=== PATIENT | male | born 1995 | race African-American/Black ===

== ENCOUNTER 2018-12-20 19:17 | Emergency (ER) | payer OTHER ==
[~2018-12-20] VITALS: Ht 185.4 cm; Wt 90.3 kg
[2018-12-20 19:28] VITALS: Ht 185.4 cm; Wt 90.3 kg
[2018-12-20 20:04] LABS: BASOPHIL % 0.3 % (0-2); PLATELET COUNT 254 x10^3mcL (130-400); RED CELL DISTRIBUTION WIDTH 12.9 % (11.5-14.5)
[2018-12-20 20:06] LABS: CHLORIDE SERUM 106 mmol/L (98-107); CREATININE SERUM 1.3 mg/dL (0.7-1.3); GFR1 > 60 mL/min; GLUCOSE SERUM 89 mg/dL (74-106); SODIUM SERUM 144 mmol/L (136-145)
[2018-12-20 20:10] LABS: ALBUMIN 4.2 g/dL (3.4-5.0); ALKALINE PHOSPHATASE 77 U/L (46-116); ALT/SGPT 11 U/L (16-63); AST/SGOT 20 U/L (15-37); BILIRUBIN TOTAL 1.58 mg/dL (0.20-1.00); LIPASE 56 IU/L (73-393); TOTAL PROTEIN, SERUM 7.8 g/dL (6.4-8.2)
[2018-12-20 21:05] VITALS: BP 113/70
== END 2018-12-20 21:05 | disposition home or self-care (01) ==
LOC: ED 19:17
PROVIDERS: Emergency Medicine
DX: R10.11 Right upper quadrant pain (principal); R51 Headache; J45.909 Unspecified asthma, uncomplicated
CPT/HCPCS: 36415

== ENCOUNTER 2019-03-20 20:21 | Emergency (ER) | payer OTHER ==
[~2019-03-20] VITALS: Ht 185.4 cm; Wt 86.2 kg
[2019-03-20 20:35] VITALS: Ht 185.4 cm; Wt 86.2 kg
[2019-03-20 21:55] LABS: CALCIUM 8.6 mg/dL (8.5-10.1); CARBON DIOXIDE 33.5 mmol/L (21-32); CHLORIDE SERUM 105 mmol/L (98-107); GFR1 > 60 mL/min; GLUCOSE SERUM 85 mg/dL (74-106); POTASSIUM SERUM 3.3 mmol/L (3.5-5.1); SODIUM SERUM 141 mmol/L (136-145)
[2019-03-20 22:32] VITALS: BP 124/70
== END 2019-03-20 22:32 | disposition home or self-care (01) ==
LOC: ED 20:21
PROVIDERS: Emergency Medicine
DX: G40.909 Epilepsy, unspecified, not intractable, without status epilepticus (principal)

== ENCOUNTER 2019-03-21 17:37 | Emergency (ER) | payer OTHER ==
[~2019-03-21] VITALS: Ht 185.4 cm; Wt 86.2 kg
[2019-03-21 17:44] VITALS: Ht 185.4 cm; Wt 86.2 kg
[2019-03-21 18:22] LABS: CALCIUM 8.9 mg/dL (8.5-10.1); CARBON DIOXIDE 32.2 mmol/L (21-32); CHLORIDE SERUM 106 mmol/L (98-107); GFR1 > 60 mL/min; GLUCOSE SERUM 75 mg/dL (74-106); POTASSIUM SERUM 4.5 mmol/L (3.5-5.1); SODIUM SERUM 142 mmol/L (136-145)
[2019-03-21 18:26] LABS: ALBUMIN 3.8 g/dL (3.4-5.0); ALKALINE PHOSPHATASE 91 U/L (46-116); ALT/SGPT 22 U/L (16-63); AST/SGOT 18 U/L (15-37); BILIRUBIN TOTAL 0.7 mg/dL (0.20-1.00); TOTAL PROTEIN, SERUM 7.5 g/dL (6.4-8.2)
[2019-03-21 19:06] VITALS: BP 121/72
== END 2019-03-21 19:01 | disposition home or self-care (01) ==
LOC: ED 17:37
PROVIDERS: Emergency Medicine
DX: F44.5 Conversion disorder with seizures or convulsions (principal)

== ENCOUNTER 2019-04-15 20:27 | Emergency (ER) | payer OTHER ==
[~2019-04-15] VITALS: Ht 185.4 cm; Wt 89.4 kg
[2019-04-15 20:48] VITALS: Ht 185.4 cm; Wt 89.4 kg
[2019-04-15 21:34] LABS: BASOPHIL % 0.4 % (0-2); PLATELET COUNT 220 x10^3mcL (130-400); RED CELL DISTRIBUTION WIDTH 12.6 % (11.5-14.5)
[2019-04-15 21:42] LABS: CALCIUM 7.9 mg/dL (8.5-10.1); CARBON DIOXIDE 28.3 mmol/L (21-32); CHLORIDE SERUM 103 mmol/L (98-107); CREATININE SERUM 0.9 mg/dL (0.7-1.3); GFR1 > 60 mL/min; GLUCOSE SERUM 94 mg/dL (74-106); POTASSIUM SERUM 3.3 mmol/L (3.5-5.1); SODIUM SERUM 137 mmol/L (136-145)
[2019-04-15 21:46] LABS: ALBUMIN 3.6 g/dL (3.4-5.0); ALKALINE PHOSPHATASE 78 U/L (46-116); ALT/SGPT 84 U/L (16-63); AST/SGOT 346 U/L (15-37); BILIRUBIN TOTAL 0.4 mg/dL (0.20-1.00); TOTAL PROTEIN, SERUM 7.4 g/dL (6.4-8.2)
[2019-04-15 22:45] VITALS: BP 122/75
== END 2019-04-15 22:45 | disposition home or self-care (01) ==
LOC: ED 20:27
PROVIDERS: Emergency Medicine
DX: G40.909 Epilepsy, unspecified, not intractable, without status epilepticus (principal); J45.909 Unspecified asthma, uncomplicated
CPT/HCPCS: 36415

== ENCOUNTER 2019-05-04 22:30 | Emergency (ER) | payer OTHER ==
[~2019-05-04] VITALS: Ht 172.7 cm; Wt 71.2 kg
[2019-05-04 22:43] VITALS: BP 128/67
== END 2019-05-04 22:51 | disposition left against medical advice (07) ==
LOC: ED 22:30
DX: R56.9 Unspecified convulsions (principal)

== ENCOUNTER 2019-05-18 17:56 | Emergency (ER) | payer OTHER ==
[2019-05-18 18:49] LABS: BASOPHIL % 0.6 % (0-2); PLATELET COUNT 258 x10^3mcL (130-400); RED CELL DISTRIBUTION WIDTH 12.4 % (11.5-14.5)
[2019-05-18 18:51] LABS: CALCIUM 8.6 mg/dL (8.5-10.1); CARBON DIOXIDE 27.2 mmol/L (21-32); CHLORIDE SERUM 103 mmol/L (98-107); CREATININE SERUM 1.1 mg/dL (0.7-1.3); GFR1 > 60 mL/min; GLUCOSE SERUM 93 mg/dL (74-106); POTASSIUM SERUM 4.3 mmol/L (3.5-5.1); SODIUM SERUM 138 mmol/L (136-145)
[2019-05-18 18:55] LABS: ALBUMIN 4.1 g/dL (3.4-5.0); ALKALINE PHOSPHATASE 115 U/L (46-116); ALT/SGPT 35 U/L (16-63); AST/SGOT 31 U/L (15-37); BILIRUBIN TOTAL 0.2 mg/dL (0.20-1.00); TOTAL PROTEIN, SERUM 8.1 g/dL (6.4-8.2)
[2019-05-18 20:36] VITALS: BP 129/54
== END 2019-05-18 20:36 | disposition home or self-care (01) ==
LOC: ED 17:56
PROVIDERS: Emergency Medicine
DX: G40.909 Epilepsy, unspecified, not intractable, without status epilepticus (principal); J45.909 Unspecified asthma, uncomplicated
CPT/HCPCS: J1165

== ENCOUNTER 2019-08-19 12:31 | Emergency (ER) | payer OTHER ==
[~2019-08-19] VITALS: Ht 185.4 cm; Wt 61.2 kg
[2019-08-19 12:35] VITALS: Ht 185.4 cm; Wt 61.2 kg
[2019-08-19 13:46] LABS: BASOPHIL % 0.6 % (0-2); PLATELET COUNT 265 x10^3mcL (130-400); RED CELL DISTRIBUTION WIDTH 12.6 % (11.5-14.5)
[2019-08-19 13:54] LABS: CALCIUM 8.2 mg/dL (8.5-10.1); CARBON DIOXIDE 27.7 mmol/L (21-32); CHLORIDE SERUM 104 mmol/L (98-107); CREATININE SERUM 1.1 mg/dL (0.7-1.3); GFR1 > 60 mL/min; GLUCOSE SERUM 93 mg/dL (74-106); POTASSIUM SERUM 3.7 mmol/L (3.5-5.1); SODIUM SERUM 142 mmol/L (136-145)
[2019-08-19 13:59] LABS: ALBUMIN 3.8 g/dL (3.4-5.0); ALKALINE PHOSPHATASE 73 U/L (46-116); ALT/SGPT 17 U/L (16-63); AST/SGOT 20 U/L (15-37); BILIRUBIN TOTAL 0.9 mg/dL (0.20-1.00); TOTAL PROTEIN, SERUM 7.3 g/dL (6.4-8.2)
[2019-08-19 14:32] VITALS: BP 130/71
== END 2019-08-19 14:32 | disposition home or self-care (01) ==
LOC: ED 12:31
PROVIDERS: Emergency Medicine
DX: G40.909 Epilepsy, unspecified, not intractable, without status epilepticus (principal); J45.909 Unspecified asthma, uncomplicated

== ENCOUNTER 2019-08-29 15:15 | Emergency (ER) | payer OTHER ==
[~2019-08-29] VITALS: Ht 185.4 cm; Wt 83.0 kg
[2019-08-29 15:22] VITALS: Ht 185.4 cm; Wt 83.0 kg
[2019-08-29 16:21] LABS: BASOPHIL % 0.8 % (0-2); PLATELET COUNT 233 x10^3mcL (130-400); RED CELL DISTRIBUTION WIDTH 12.9 % (11.5-14.5)
[2019-08-29 16:37] LABS: ALBUMIN 3.9 g/dL (3.4-5.0); ALKALINE PHOSPHATASE 78 U/L (46-116); ALT/SGPT 18 U/L (16-63); AST/SGOT 18 U/L (15-37); CALCIUM 8.4 mg/dL (8.5-10.1); CARBON DIOXIDE 28.4 mmol/L (21-32); CHLORIDE SERUM 103 mmol/L (98-107); CREATININE SERUM 0.9 mg/dL (0.7-1.3); GFR1 > 60 mL/min; GLUCOSE SERUM 87 mg/dL (74-106); POTASSIUM SERUM 3.7 mmol/L (3.5-5.1); SODIUM SERUM 140 mmol/L (136-145); TOTAL PROTEIN, SERUM 7.2 g/dL (6.4-8.2)
[2019-08-29 17:53] VITALS: BP 130/81
== END 2019-08-29 17:53 | disposition home or self-care (01) ==
LOC: ED 15:15
PROVIDERS: Emergency Medicine
DX: R07.89 Other chest pain (principal); G40.909 Epilepsy, unspecified, not intractable, without status epilepticus; J45.909 Unspecified asthma, uncomplicated
CPT/HCPCS: 36415; Q0092

== ENCOUNTER 2019-11-04 20:25 | Emergency (ER) | payer OTHER ==
[~2019-11-04] VITALS: Ht 185.4 cm; Wt 83.9 kg
[2019-11-04 20:46] VITALS: Ht 185.4 cm; Wt 83.9 kg
[2019-11-04 21:07] LABS: BASOPHIL % 0.4 % (0-2); PLATELET COUNT 219 x10^3mcL (130-400); RED CELL DISTRIBUTION WIDTH 12.3 % (11.5-14.5)
[2019-11-04 21:25] LABS: CALCIUM 9.3 mg/dL (8.5-10.1); CARBON DIOXIDE 28.2 mmol/L (21-32); CHLORIDE SERUM 104 mmol/L (98-107); CREATININE SERUM 1.3 mg/dL (0.7-1.3); GFR1 > 60 mL/min; GLUCOSE SERUM 94 mg/dL (74-106); POTASSIUM SERUM 3.5 mmol/L (3.5-5.1); SODIUM SERUM 141 mmol/L (136-145)
[2019-11-04 21:31] LABS: ALBUMIN 4.2 g/dL (3.4-5.0); ALKALINE PHOSPHATASE 87 U/L (46-116); ALT/SGPT 24 U/L (16-63); AST/SGOT 28 U/L (15-37); BILIRUBIN TOTAL 1.14 mg/dL (0.20-1.00); MAGNESIUM 2.1 mg/dL (1.8-2.4)
[2019-11-05 00:09] VITALS: BP 122/68
== END 2019-11-05 00:01 | disposition home or self-care (01) ==
LOC: ED 20:25
PROVIDERS: Emergency Medicine
DX: S06.0X0A Concussion without loss of consciousness, initial encounter (principal); R56.9 Unspecified convulsions; J45.909 Unspecified asthma, uncomplicated; W18.39XA Other fall on same level, initial encounter; Y93.75 Activity, martial arts; Y92.89 Other specified places as the place of occurrence of the external cause; Y99.8 Other external cause status
CPT/HCPCS: J1953; J2060

== ENCOUNTER 2019-11-25 20:48 | Emergency (ER) | payer OTHER ==
[~2019-11-25] VITALS: Ht 182.9 cm; Wt 81.6 kg
[2019-11-25 20:57] VITALS: Ht 182.9 cm; Wt 81.6 kg
[2019-11-25 22:47] LABS: CALCIUM 8.9 mg/dL (8.5-10.1); CARBON DIOXIDE 31.9 mmol/L (21-32); CHLORIDE SERUM 103 mmol/L (98-107); CREATININE SERUM 1.3 mg/dL (0.7-1.3); GFR1 > 60 mL/min; GLUCOSE SERUM 86 mg/dL (74-106); POTASSIUM SERUM 3.3 mmol/L (3.5-5.1); SODIUM SERUM 139 mmol/L (136-145)
[2019-11-25 22:52] LABS: ALBUMIN 3.8 g/dL (3.4-5.0); ALKALINE PHOSPHATASE 92 U/L (46-116); ALT/SGPT 25 U/L (16-63); AST/SGOT 22 U/L (15-37); BILIRUBIN TOTAL 0.3 mg/dL (0.20-1.00); TOTAL PROTEIN, SERUM 7.5 g/dL (6.4-8.2)
[2019-11-25 23:53] VITALS: BP 121/68
== END 2019-11-25 23:53 | disposition home or self-care (01) ==
LOC: ED 20:48
PROVIDERS: Emergency Medicine
DX: G40.909 Epilepsy, unspecified, not intractable, without status epilepticus (principal); R89.2 Abnormal level of other drugs, medicaments and biological substances in specimens from other organs, systems and tissues; J45.909 Unspecified asthma, uncomplicated; Z76.0 Encounter for issue of repeat prescription
CPT/HCPCS: 82962

== ENCOUNTER 2020-01-23 02:29 | Emergency (ER) | payer OTHER ==
[~2020-01-23] VITALS: Ht 182.9 cm; Wt 81.6 kg
[2020-01-23 02:38] VITALS: Ht 182.9 cm; Wt 81.6 kg
[2020-01-23 05:00] VITALS: BP 126/75
== END 2020-01-23 05:00 | disposition home or self-care (01) ==
LOC: ED 02:29
DX: G40.909 Epilepsy, unspecified, not intractable, without status epilepticus (principal); J45.909 Unspecified asthma, uncomplicated
CPT/HCPCS: J1165; J2060

== ENCOUNTER 2020-01-25 14:21 | Emergency (ER) | payer OTHER ==
[~2020-01-25] VITALS: Ht 185.4 cm; Wt 83.9 kg
[2020-01-25 14:25] VITALS: Ht 185.4 cm; Wt 83.9 kg
[2020-01-25 15:00] LABS: BASOPHIL % 0.5 % (0-2); PLATELET COUNT 221 x10^3mcL (130-400); RED CELL DISTRIBUTION WIDTH 12.6 % (11.5-14.5)
[2020-01-25 15:07] LABS: CALCIUM 8.5 mg/dL (8.5-10.1); CARBON DIOXIDE 31.2 mmol/L (21-32); CHLORIDE SERUM 104 mmol/L (98-107); CREATININE SERUM 1.1 mg/dL (0.7-1.3); GFR1 > 60 mL/min; GLUCOSE SERUM 88 mg/dL (74-106); POTASSIUM SERUM 4.1 mmol/L (3.5-5.1); SODIUM SERUM 141 mmol/L (136-145)
[2020-01-25 15:12] LABS: ALKALINE PHOSPHATASE 75 U/L (46-116); ALT/SGPT 16 U/L (16-63); AST/SGOT 20 U/L (15-37); BILIRUBIN TOTAL 0.6 mg/dL (0.20-1.00); TOTAL PROTEIN, SERUM 7.6 g/dL (6.4-8.2)
[2020-01-25 15:24] VITALS: BP 113/77
== END 2020-01-25 15:23 | disposition left against medical advice (07) ==
LOC: ED 14:21
PROVIDERS: Specialist
DX: R07.89 Other chest pain (principal); J45.909 Unspecified asthma, uncomplicated
CPT/HCPCS: 83880

== ENCOUNTER 2020-02-12 17:47 | Observation (INO) | payer OTHER ==
[~2020-02-12] VITALS: Ht 188 cm; Wt 91.0 kg
--- NOTE | 2020-02-12 18:00 | NUR ---
PATIENT PLACED ON 5150 HOLD BY OFFICER CHARLY. ORIGINAL COPY PLACED IN CHART.
--- NOTE | 2020-02-12 18:15 | NUR ---
PATIENT ARRIVED FROM [facility], C/O SI BY TAKING 9 WELLBUTRIN MEDICATION, UNKNOWN TIME OR DOSE. PATIENT VOLUNTARILY WALKED INTO [facility] TODAY FOR ATTEMPT SI BY OVER DOSE. PATIENT C/O DIZZINESS AND NAUSEA AT THIS TIME. PATIENT AAOX4, NAD AT THIS TIME. PATIENT GOWNED, SAFETY PRECAUTIONS IN PLACE, SEIZURE PRECAUTIONS IN PLACE, MSE DONE BY DR. OTT, PATIENT IN VIEW OF NURSE STATION. PATIENT BELONGING PLACED IN RADION ROOM. HX OF SEIZURES PATIENT NPO. .
[2020-02-12 18:16] VITALS: Ht 188 cm; Wt 91.0 kg
--- NOTE | 2020-02-12 18:16 | NUR ---
SARA FROM POISON CONTROL RECOMMENDS 24 HRS MONITOR FOR LATE ONSET SEIZURE. LABS: CMP, MG, ASA, ACETAMINOPHEN, ALCOHOL LEVELS. UPDATE VITALS SIGNS WITH TEMPERATURE. TREATMENT: REPEAT EKG IN 3 HRS, MONITOR FOR QT PROLONGATION -NPO, ZOFRAN, PROTONIX, 50MG PO CHARCOAL.
--- NOTE | 2020-02-12 18:28 | NUR ---
PROVIDED PATIENT URINAL. PATIENT STATES HE'S UNABLE TO PROVIDE ANY URINE AT THIS TIME. PATIENT IN VIEW OF NURSE STATION
[2020-02-12 18:29] LABS: BASOPHIL % 0.2 % (0-2); PLATELET COUNT 262 x10^3mcL (130-400); RED CELL DISTRIBUTION WIDTH 12.2 % (11.5-14.5)
[2020-02-12 18:35] LABS: CALCIUM 8.9 mg/dL (8.5-10.1); CARBON DIOXIDE 27.6 mmol/L (21-32); CHLORIDE SERUM 102 mmol/L (98-107); CREATININE SERUM 1.2 mg/dL (0.7-1.3); GFR1 > 60 mL/min; GLUCOSE SERUM 98 mg/dL (74-106); POTASSIUM SERUM 3.6 mmol/L (3.5-5.1); SODIUM SERUM 140 mmol/L (136-145)
[2020-02-12 18:39] LABS: ALBUMIN 4.2 g/dL (3.4-5.0); ALKALINE PHOSPHATASE 75 U/L (46-116); ALT/SGPT 29 U/L (16-63); AST/SGOT 21 U/L (15-37); BILIRUBIN TOTAL 0.85 mg/dL (0.20-1.00)
[2020-02-12 18:40] LABS: TOTAL PROTEIN, SERUM 8.4 g/dL (6.4-8.2)
--- NOTE | 2020-02-12 18:41 | NUR ---
PATIENT BELONGING IN RADIO ROOM
[2020-02-12 19:05] LABS: microscopic required? NO
--- NOTE | 2020-02-12 19:10 | NUR ---
REPORT GIVEN TO QUINN SMITH TO ASSUME PATIENT CARE
[2020-02-12 19:19] LABS: UA SPECIFIC GRAVITY 1.025 (1.005-1.035); urine erythrocyte NEGATIVE (NEGATIVE)
--- NOTE | 2020-02-12 19:34 | NUR ---
RECEIVED PT FROM GABRIELA SMITH, PT IN ED FOR SI AND OD ON WELLBUTRIN. PT AAO X4, SPEECH CLEAR AND APPROPRIATE, VSS, PERSUDHAKAR, PT STATES HE NO LONGER WISHES TO HARM HIMSELF, I INFORMED PT HE IS STILL ON A 5150 HOLD AND WILL BE KEPT FOR OBSERVAION. UPDATED PT ON POC, PT VERBALIZED UNDERSTANDING, IV 29 G IN LAC, FLUSHES FREELY WITH 10 CC NS. PT IN VIEW OF NURSES STATION, WILL CLOSELY MONITOR FOR ANY CHANGES, SEIZURE PRECAUTIONS IN PLACE
--- NOTE | 2020-02-12 20:49 | NUR ---
PT LAYING IN ED GURNEY, DENIES ANY PAIN AND APPEARS COMFORTABLE, NO S/S OF AGITATION OR HALLLUCINATIONS, DENIES SI AT THIS TIME. VSS, PT IS A TELE HOLD, AWAITING BED PLACEMENT. ELODIA LIGHT WITHIN REACH, WILL MONITOR
--- NOTE | 2020-02-12 21:34 | NUR ---
ARANZA FROM POISON CONTROL CALLED BACK FOR UPDATE ON LABS AND VITAL SIGNS. PER SABRA BECAUSE WELBUTRIN CAN PROLONG THE QTC IT IS IMPORTANT TO OPTIMIZE ELECTROLYTES, AND KEEP POTASSIUM ABOVE 4, CALCIUM ABOVE 9, AND MAG ABOVE 2. PRIMARY RN QUINN MADE AWARE.
--- NOTE | 2020-02-12 21:44 | NUR ---
MD HILARIO CALLED AND MADE AWARE OF POISON CONTROLS RECOMMENDATIONS.
--- NOTE | 2020-02-12 22:36 | NUR ---
PT IN ED FROYLAN, IN AND OUT OF SLEEP, PT STATES HE IS COMFORTABLE AT THIS TIME, DENIES PAIN, SOB, DIZZINESS, CONNECTED TO FULL CM, NSR. VSS. CALL LIGHT WITHIN REACH WILL MONITOR
--- NOTE | 2020-02-12 23:15 | NUR ---
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 SANTA VERBALIZED UNDERSTANDING. NUMBER TO CALL SANTA IS [phone]
--- NOTE | 2020-02-12 23:28 | NUR ---
PT SLEEPING, ALL VITAL SIGNS ARE STABLE FLUID HYDRATION STARTED AT 80ML/HR. PT DENIES CHEST PAIN, SOB, N/V/D. PT STATES HE IS DIZZY WITH MOVEMENT. WILL MONITOR
--- NOTE | 2020-02-13 00:40 | NUR ---
ALL VITAL SIGNS CURRENTLY STABLE, PT IS SLEEPING, EASILY WAKENED, AAO X4, SPEECH IS CLEAR AND APPROPRIATE, DENIES N/V/D, CHEST PAIN, SOB AND DIZZINESS. NO ACUTE DISTRESS NOTED, IV HYDRATION CONTINUES TO INFUSE AT 80 ML HR. ALL NEEDS CURRENTLY MET. PT CONNECTED TO FULL CM, NSR. WILL MONITOR
--- NOTE | 2020-02-13 01:14 | NUR ---
ASSUMED CARE OF PT FROM LUIS BALL.
--- NOTE | 2020-02-13 01:17 | NUR ---
PT A&O X4, RESP E/U, EQUAL RISE AND FALL OF THE CHEST, AND NO DISTRESS. WILL CONTINUE TO MONITOR THE PT.
--- NOTE | 2020-02-13 02:10 | NUR ---
PT A&O X4, RESP E/U, EQUAL RISE AND FALL OF THE CHEST, AND NO DISTRESS NOTED. WILL CONTINUE TO MONITOR.
--- NOTE | 2020-02-13 02:10 | NUR ---
PROVIDED PT WITH SANDWICH AND TWO CUPS OF WATER.
--- NOTE | 2020-02-13 03:27 | NUR ---
PT SLEEPING IN GURNEY CALMLY, RESP E/U, EQUAL RISE AND FALL OF THE CHEST, AND NO DISTRESS NOTED. WILL CONTINUE TO MONITOR.
--- NOTE | 2020-02-13 04:23 | NUR ---
PT SLEEPING CALMLY IN GURNEY, RESP E/U, EQUAL RISE AND FALL OF THE CHEST, AND NO DISTRESS NOTED. WILL CONTINUE TO MONITOR THE PT.
--- NOTE | 2020-02-13 05:16 | NUR ---
PT A&O X4, RESP E/U, EQUAL CHEST RISE, AND NO DISTRESS NOTED. WILL CONTINUE TO MONITOR.
--- NOTE | 2020-02-13 06:14 | NUR ---
PT A&O X4, RESP E/U, EQUAL RISE AND FALL OF THE CHEST, AND NO DISTRESS NOTED. WILL CONTINUE TO MONITOR THE PT.
[2020-02-13 06:26] LABS: BASOPHIL % 0.2 % (0-2); PLATELET COUNT 280 x10^3mcL (130-400); RED CELL DISTRIBUTION WIDTH 12.5 % (11.5-14.5)
[2020-02-13 06:50] LABS: ALBUMIN 3.9 g/dL (3.4-5.0); ALKALINE PHOSPHATASE 64 U/L (46-116); ALT/SGPT 21 U/L (16-63); AST/SGOT 20 U/L (15-37); CALCIUM 8.5 mg/dL (8.5-10.1); CARBON DIOXIDE 25.5 mmol/L (21-32); CHLORIDE SERUM 102 mmol/L (98-107); GFR1 > 60 mL/min; GLUCOSE SERUM 104 mg/dL (74-106); MAGNESIUM 1.8 mg/dL (1.8-2.4); PHOSPHOROUS 3.7 mg/dL (2.5-4.9); POTASSIUM SERUM 3.5 mmol/L (3.5-5.1); SODIUM SERUM 138 mmol/L (136-145); TOTAL PROTEIN, SERUM 7.6 g/dL (6.4-8.2)
--- NOTE | 2020-02-13 07:07 | NUR ---
SPOKE TO PHARMACY REGARDING THE TWO ORDERS FOR POTASSIUM ORDERS, TABLETS AND IV. PHARMACY INFORMED ME TO ONLY GIVE THE TABLETS. IV ORDER SET TO GIVE IV POTASSIUM IF LESS THAN 4 AND TABLETS IF POTASSIUM IS 3.1 TO 3.5.
--- NOTE | 2020-02-13 07:45 | NUR ---
PT RECD RESTING WELL, NO COMBATIVE BEHAVIOR, NO C/O AURA OR ANY SE ACTIVITY NOTED; PT TO REMAIN FOR OBSERVATION DUE HIS INGESTION; CONT TO MONTIOR
--- NOTE | 2020-02-13 08:12 | NUR ---
ROSY JEAN POISON CONTROL: [phone], STS THAT A F/U EKG SHOULD BE DONE FOR FURTHER F/U OF WELLBUTRIN SIDE EFFECTS; PT REMAINS AWAKE/ALERT, NO DISTRESS, REMAINS CALM/COOPERATIVE, UPDATED PROVIDER
--- NOTE | 2020-02-13 09:40 | NUR ---
PT WILL GO TO ICU FOR FURTHER MONITORING; PT REMAINS W/O SEIZURE ACTIVITY, CP/SOB/DIZZINESS; REMAINS CALM/COOPERATIVE; ARRON 100% OF AM MEAL
--- NOTE | 2020-02-13 11:15 | NUR ---
PT RESTING WELL, NO OUTBURSTS, ASKS TO USE BR; RTNS TO BEDSIDE IMMEDIATELY; REMIANS CALM/COOPERATIVE, NO SEIZURE ACTIVITY OR CHEST PAIN NOTED
--- NOTE | 2020-02-13 13:28 | NUR ---
REPORT GIVEN TO LAUREN SMITH; PT ATE 100% OF AFTERNOON MEAL; ARRON WELL; NO SEIZURE ACTIVITY SEEN, NO OUTBURSTS, NO COMBATIVE BEHAVIOR, NEEDING RE-EVAL FOR [facility]URN TO [facility]
[2020-02-13 14:08] VITALS: BP 126/54
--- NOTE | 2020-02-13 14:57 | NUR ---
1420 SPOKE TO PATIENT AND HE STATED HE FEELS GOOD, ASKED IF HE FELT LIKE TRYING TO KILL HIMSELF NOW AND HE STATED THE "MEDS SEEMED TO MAKE ME FEEL PSYCHOTIC. I HADNT FELT LIKE THAT BEFORE" HE SAYS. HE ALSO SAYS HE FEELS VERY MUCH BETTER NOW AND HE THINKS THE "CRUEL" PEOPLE OF HIS PAST BROUGHT HIM DOWN. HE SAYS HE WILL TRY TO SEPARATE HIMSELF FROM THEM.
--- NOTE | 2020-02-13 15:47 | NUR ---
SHEMAR FROM POISON CONTROL GIVEN UPDATE/MW
--- NOTE | 2020-02-13 16:42 | NUR ---
1640 PT REMAINS IN GOOD SPIRITS AND ZERO DISTRESS//MW
--- NOTE | 2020-02-13 18:40 | NUR ---
1820 psychiatric MD spoke to patient and advised he is on 5150 hold til tomorrow when pt will be ok to move to other facility/MD left before i could speak to him and no notes yet//mw
[2020-02-13 19:40] VITALS: BP 159/95
[2020-02-14 00:14] VITALS: BP 135/69
[2020-02-14 04:00] VITALS: BP 127/76
--- NOTE | 2020-02-14 04:51 | NUR ---
PLEBOTOMIST BRITT AT BEDSIDE STATES SHE IS UNABLE TO COMPLETE LAB DRAW. STATES SHE WILL SEND ANOTHER PLEBOTOMIST TO TRY THIS MORNING.
[2020-02-14 05:50] LABS: BASOPHIL % 0.4 % (0-2); PLATELET COUNT 276 x10^3mcL (130-400); RED CELL DISTRIBUTION WIDTH 12.4 % (11.5-14.5)
[2020-02-14 06:51] LABS: ALKALINE PHOSPHATASE 68 U/L (46-116); ALT/SGPT 22 U/L (16-63); AST/SGOT 12 U/L (15-37); BILIRUBIN TOTAL 1.07 mg/dL (0.20-1.00); CARBON DIOXIDE 25.5 mmol/L (21-32); CHLORIDE SERUM 105 mmol/L (98-107); CREATININE SERUM 1.2 mg/dL (0.7-1.3); GFR1 > 60 mL/min; GLUCOSE SERUM 95 mg/dL (74-106); PHOSPHOROUS 4.3 mg/dL (2.5-4.9); SODIUM SERUM 140 mmol/L (136-145)
[2020-02-14 07:07] LABS: TOTAL PROTEIN, SERUM 8.3 g/dL (6.4-8.2)
[2020-02-14 07:30] VITALS: BP 135/69
--- NOTE | 2020-02-14 10:07 | NUR ---
PT HAS NO THROUGHTS OF HARMING SELF, WANTS TO GO HOME, NO PLANS TO HARM SELF ONCE PT GOES HOME, WILL CONTINUE TO MONITOR
--- NOTE | 2020-02-14 10:54 | NUR ---
REPORT GIVEN TO SOURAV SMITH, ALL QUESTIONS & CONCERNS ANSWERED
--- NOTE | 2020-02-14 11:29 | NUR ---
REC'VD PT FROM LUIS LAI. PT ARRIVED TO UNIT VIA WHEELCHAIR ACCOMPANIED BY RN. AAOX4, APPROPRIATE CONVERSATION NOTED. RES E/U, DENIES SOB ON RA. TELE MONITOR 29, SHOWING SR. DENIES CP/PRESSURE. ABDOMEN SOFT, ACTIVE BOWEL SOUNDS X4. NO GI/ COMPLAINT. VOIDS IN URINAL WITHOUT DIFFICULTY. SKIN WARM, DRY, AND INTACT. AMBULATORY AT BASELINE. IV SITE TO ROYCE FARRIS.
--- NOTE | 2020-02-14 15:27 | NUR ---
IV TO RAC FLUSHED AND INFILTRATED. REMOVED IV AND CATHETER INTACT. INSTERTED A 22 G IV TO RFA, FLUSHED AND PATENT. PT TOLERATED WELL. IVF RESUMED
--- NOTE | 2020-02-14 18:44 | NUR ---
PT LAYING IN BED. NO SIGNIFICANT CHANGES NOTED. NO ACUTE DISTRESS NOTED. IV SITE TO LFA CDI AND PATENT. IVF INFUSING WELL. DENIES PAIN/DISCOMFORT. SITTER AT BEDSIDE
--- NOTE | 2020-02-14 19:30 | NUR ---
PT RECIEVED FROM DAY NURSE. PT RESTING AT SIDE OF BED AT THIS TIME. SITTER AT BEDSIDE. PT DENIES PAIN OR DISCOMFORT. PT BREATHING E/U ON RA. PT INSISTING ON LEAVING AT THIS TIME. PT ADVISED THAT HE IN ON A 5150 HOLD REQUIRED TO BE HERE AT THIS TIME. TOLD PT MARGIE BASHIR WILL BE CONTACTED IF HE ATTEMPTS TO LEAVE.
--- NOTE | 2020-02-14 19:45 | NUR ---
PT REQUESTING FOR HIS IV TO BE REMOVED. PT STATING HE WANTS TO LEAVE. CHARGE NURSE MADE AWARE. CHARGE NURSE TO SPEAK TO PT.
--- NOTE | 2020-02-14 19:54 | NUR ---
DR HULL PER PHONE. CALLED BECAUSE PATIENT INSISTING TO LEAVE THE HOSPITAL. PATIENT WAS ALREADY INFORMED THAT IF HE LEAVES THE HOSPITAL WE WILL BE CALLING THE [place] [employer]. PER DOCTOR KURTIS, PATIENT IS SUICIDAL AND CAME FROM [facility]. HE IS NOT SAFE TO LEAVE. DR HULL AGREED THAT WE NEED TO FOLLOW THE PROTOCOL OF CALLING THE POLICE. CALL HAD BEEN PLACED FOR ATTENDING PHYSICIAN. DR NICHOLSED DELIVERY CLERK BUT HAS NOT YET CALLED BACK. NURSING TRACTOR OPERATOR BATTERY INFORMED.
[2020-02-14 19:57] VITALS: BP 103/65
--- NOTE | 2020-02-14 20:00 | NUR ---
[place] PD CALLED AT THIS TIME. INFORMED DISPATCHER VANESA OF PTS DECISION TO LEAVE. PER PD, OFFICER WILL MEET US AT [facility]. PT ACCOMPANIED DOWN TO [facility], OFFICER SPOKE TO PT. PER OFFICER, IF PT WAS TO LEAVE HE IS REQUIRED TO TAKE PT BACK TO ER. PT DECIEDED TO STAY AT THIS TIME. PT ACCOMPANIED BACK TO PT ROOM. WILL CONTINUE TO MONITOR.
--- NOTE | 2020-02-14 20:30 | NUR ---
PT REFUSING TELE AND IV AT THIS TIME. MADE AWARE.
[2020-02-15 06:38] VITALS: BP 134/82
--- NOTE | 2020-02-15 06:46 | NUR ---
PT RESTING IN BED AT THIS TIME. DENIES PAIN OR DISCOMOFORT. SITTER AT BEDSIDE. ALL NEEDS AND CONCERNS ADDRESSED. WILL ENDORSE TO DAY NURSE.
--- NOTE | 2020-02-15 07:05 | NUR ---
RCV'D PT FROM NIGHT RN. PT SITTING ON CHAIR, AAOX4. NO ACUTE DISTRESS NOTED. DENIES PAIN/DISCOMFORT. NO IV ACCESS, PT REFUSED. NO TELE MONITOR, PT REFUSED. SITTER AT BEDSIDE.
[2020-02-15 09:27] VITALS: BP 131/76
[2020-02-15 09:39] LABS: ALBUMIN 4.3 g/dL (3.4-5.0); ALKALINE PHOSPHATASE 70 U/L (46-116); ALT/SGPT 16 U/L (16-63); AST/SGOT 18 U/L (15-37); BILIRUBIN TOTAL 1.2 mg/dL (0.20-1.00); CALCIUM 9.3 mg/dL (8.5-10.1); CARBON DIOXIDE 29.2 mmol/L (21-32); CHLORIDE SERUM 100 mmol/L (98-107); GFR1 > 60 mL/min; GLUCOSE SERUM 90 mg/dL (74-106); MAGNESIUM 1.9 mg/dL (1.8-2.4); PHOSPHOROUS 3.8 mg/dL (2.5-4.9); POTASSIUM SERUM 3.4 mmol/L (3.5-5.1); SODIUM SERUM 138 mmol/L (136-145)
[2020-02-15 09:41] LABS: TOTAL PROTEIN, SERUM 8.5 g/dL (6.4-8.2)
--- NOTE | 2020-02-15 10:25 | NUR ---
TELE MONITOR REPORTS THAT PATIENT IS STANDING BY THE ELEVATOR WITH SECURITY. APPEARS ANXIOUS AND STATES "WHEN CAN I GO HOME?". REASSURED PT THAT MD WILL BE NOTIFIED. ASSISTED PT BACK TO ROOM.
[2020-02-15 10:38] LABS: BASOPHIL % 0.4 % (0-2); PLATELET COUNT 275 x10^3mcL (130-400); RED CELL DISTRIBUTION WIDTH 12.4 % (11.5-14.5)
--- NOTE | 2020-02-15 11:00 | NUR ---
PT WALKED OUT OF ROOM TO THE ELEVATOR. REASSURED PT THAT DR TREJO WILL SPEAK WITH HIM AND THAT HE IS CURRENTLY IN ANOTHER UNIT. WALKED PT BACK TO ROOM. PT APPEARS SUSPICIOUS AND SAID "ARE YOU PLAYING WITH ME?" REASSURED PT THAT DR TREJO WILL SPEAK WITH HIM.
--- NOTE | 2020-02-15 12:00 | NUR ---
DR TREJO AT BEDSIDE TO UPDATE PT
[2020-02-15] MEDS ORDERED: TYL325 PO (13:35)
--- NOTE | 2020-02-15 14:00 | NUR ---
PT APPEARS CALM AND COOPERATIVE. PT STATES "I FEEL BETTER TALKING TO DR. TREJO. HE'S VERY NICE. THANK YOU."
--- NOTE | 2020-02-15 18:42 | NUR ---
PT SITTING IN CHAIR, NO ACUTE DISTRESS NOTED. DENIES PAIN/DISCOMFORT. PT APPEARS PLEASANT AND COOPERATIVE. SITTER AT BEDSIDE. NO IV ACCESS, PT REFUSED. WILL ENDORSE CARE TO NEXT SHIFT
--- NOTE | 2020-02-15 19:42 | NUR ---
PT RECIEVED FROM DAY NURSE. PT RESTING IN BED AT THIS TIME. PT ON 5150 HOLD. SITTER AT BEDSIDE. PT A/OX4, CALM AND COOPERATIVE AT THIS TIME. PT REFUSING TELE MONITORING AND IV ACCESS. AWARE. PT ON RA, BREATHING E/U. AMBULATORY AT BASELINE. NO S/S OF ACUTE DISTRESS NOTED AT THIS TIME. WILL CONTINUE TO MONITOR.
[2020-02-15 22:20] VITALS: BP 130/76
--- NOTE | 2020-02-16 04:29 | NUR ---
At this time there are still no beds available at the following facilities [facility] Raul Jerryfriantlalo will continue to look for placement .
[2020-02-16 06:03] VITALS: BP 123/82
--- NOTE | 2020-02-16 06:17 | NUR ---
PT RESTING IN BED AT THIS TIME, DENIES PAIN OR DISCOMFORT. PT BREATHING E/U ON RA. NO S/S OF ACUTE DISTRESS NOTED. SITTER AT BEDSIDE. WILL ENDORSE TO DAY NURSE.
--- NOTE | 2020-02-16 07:30 | NUR ---
RECEIVED REPORT FROM CHANNEL PROGRAM MANAGER NURSE. PT IS A/OX4. VS STABLE. NO IV ACCESS, PT REFUSED. PT IS ON 5150 HOLD. SITTER AT BEDSIDE. ALL PROTOCOLS IN PLACE.
[2020-02-16 07:50] LABS: ALBUMIN 4.4 g/dL (3.4-5.0); ALKALINE PHOSPHATASE 77 U/L (46-116); ALT/SGPT 22 U/L (16-63); AST/SGOT 15 U/L (15-37); BILIRUBIN TOTAL 0.97 mg/dL (0.20-1.00); CALCIUM 9.5 mg/dL (8.5-10.1); CHLORIDE SERUM 102 mmol/L (98-107); CREATININE SERUM 1.2 mg/dL (0.7-1.3); GFR1 > 60 mL/min; GLUCOSE SERUM 87 mg/dL (74-106); PHOSPHOROUS 3.7 mg/dL (2.5-4.9); POTASSIUM SERUM 4.1 mmol/L (3.5-5.1); SODIUM SERUM 141 mmol/L (136-145)
[2020-02-16 07:57] LABS: BASOPHIL % 0.8 % (0-2); PLATELET COUNT 321 x10^3mcL (130-400); RED CELL DISTRIBUTION WIDTH 11.6 % (11.5-14.5)
[2020-02-16 09:50] VITALS: BP 136/70
[2020-02-16 12:47] VITALS: BP 106/74
--- NOTE | 2020-02-16 13:56 | NUR ---
Packet referred to the following facilties: [facility]
--- NOTE | 2020-02-16 17:33 | NUR ---
PT IS A/OX4. DENIES SI AT THIS TIME. SPOKE TO DR DAO FROM [facility] ABOUT PT CONDITION. AWAITING FOR CALL BACK. NO IV ACCESS, PT FEFUSED. VS STABLE. PT IS ON 5150HOLD. SITTER AT BEDSIDE. ALL PROTOCOLS IN PLACE. WILL ENDORSE CARE TO ONCOMING NURSE.
[2020-02-16 17:51] VITALS: BP 125/71
--- NOTE | 2020-02-16 20:34 | NUR ---
PT RECIEVED AAO REG RESP NO SOB ABDO IS SOFT WITH ACTIVE BOWEL SOUNDS,NO IV ACESS OR TELE PER NURSE PATIENT REFUSED IT,KEPT CLEAN AND DRY TO TOUCH,CALL LIGHT EASY REACHED,DR TERAN D/C ,WILL CONTINUE TO MONITOR.
--- NOTE | 2020-02-16 21:19 | NUR ---
CALL TO DR HOPKINS MADE AWARE PATIEMT BEING CLEAR OF ,DR HOPKINS SAYSS SUZY PUT IN THE ORDER FOR PATIENT TO BE D/C,MADE PATIENT AWARE TO CALL FMAILY TO PICK HIM UP,WILL CONTINUE TO MONITOR.
[2020-02-16 21:54] VITALS: BP 123/88
--- NOTE | 2020-02-16 22:04 | NUR ---
DR HOPKINS DID NOT PUT IN THE ORDER TO D/C PATIENT,PT CALLING FAMILY BUT NO RESPONSE YET,MADE CHARGE NURSE AWARE OF COOKIE SITUATION,WILL CONTINUE TO MONITOR.
--- NOTE | 2020-02-16 23:27 | NUR ---
HAD ORDER TO D/C PATIENT HOME,FAMILY NOT RESPONDING TO THE PHONE CALL SO PATIENT WILL BE GOING [place] VIA [facility],WILL CONTINUE TO MONITOR.
--- NOTE | 2020-02-16 23:50 | NUR ---
PER PATIENT LEFT KEYS AT [facility] CALL THE HOSPITAL TO HAVE PATIENT KEYS READY,SPOKE TO THE SAMPLE PREPARATION SUPERVISOR,SAYS IS LOOKING FOR THR KEYS AND WILL GET BACK TO ME,WILL CONTINUE TO MONITOR.
--- NOTE | 2020-02-17 00:15 | NUR ---
WAITING TO BE CALL BACK BY THE DILEEP ASSEMBLER FLEXIBLE LEADS,WILL CONTINUE TO MONITOR.
--- NOTE | 2020-02-17 01:05 | NUR ---
CALL TO DILEEP MARINELLI FOUND HIS KEYS AND [place]LET MADE PATIENT AWARE AND WILL BE MANAGER MARKETING HIS ITEMS ON HIS WAY HOME,WILL CONTINUE TO MONITOR.
--- NOTE | 2020-02-17 01:45 | NUR ---
PT D/C HOME VIA [facility] IN STABLE CONDITION,PT WAS ACCOMPANIED BY THE NURSE TO THE TAXI,WENT HOME WITH ALL BELONGINGS.
== END 2020-02-17 01:46 | disposition home or self-care (01) ==
LOC: ED 17:47 → DU 19:40 → IC 02-13 13:42 → DU 02-14 11:28
PROVIDERS: Emergency Medicine; ADMIT Internal Medicine; ATTEND Internal Medicine
DX: R45.851 Suicidal ideations (principal); J45.909 Unspecified asthma, uncomplicated; Z20.828 Contact with and (suspected) exposure to other viral communicable diseases; G40.909 Epilepsy, unspecified, not intractable, without status epilepticus
CPT/HCPCS: G0378; G0480; J0610; J7030